=== PATIENT | male | born 1985 | race African-American/Black ===

== ENCOUNTER 2018-06-20 05:47 | Emergency (ER) | payer OTHER ==
[2018-06-20] MEDS ORDERED: KETOROLAC TROMETHAMINE INJ/PF 30 MG/1 ML SDV IV ONE (07:26)
[2018-06-20] MEDS ORDERED: RINGERS SOLUTION,LACTATED 1,000 ML IV ONE (07:26)
[2018-06-20] MEDS ORDERED: ONDANSETRON HCL INJ/PF 4 MG/2 ML SDV IV ONE (07:26)
[2018-06-20 08:15] LABS: ABSOLUTE EOSINOPHILS # (AUTO) 0.1 10^3/uL (0.0-0.6); ABSOLUTE LYMPHOCYTES (AUTO) 2.1 10^3/uL (0.5-4.7); ABSOLUTE MONOCYTES (AUTO) 0.5 10^3/uL (0.1-1.4); ABSOLUTE NEUT (AUTO) 2.5 10^3/uL (1.7-8.2); BASOPHILS % (AUTO) 0.8 % (0-2); HEMATOCRIT 47.8 % (37.9-51.0); HEMOGLOBIN 16.7 g/dL (13.5-17.0); LYMPHOCYTES % (AUTO) 39.8 % (13-45); MEAN CORPUSCULAR HEMOGLOBIN 29.7 pg (27.0-33.4); MEAN CORPUSCULAR HGB CONC 34.9 g/dL (32.0-36.0); MEAN CORPUSCULAR VOLUME 85 fl (80-97); PLATELET COUNT 269 10^3/uL (150-450); RED BLOOD COUNT 5.62 10^6/uL (4.35-5.55); RED CELL DISTRIBUTION WIDTH 13.8 % (11.5-14.0); SEGMENTED NEUTROPHILS % (AUTO) 47.4 % (42-78); TOTAL CELLS COUNTED % (AUTO) 100 %; WHITE BLOOD COUNT 5.3 10^3/uL (4.0-10.5)
[2018-06-20 08:16] LABS: APPEARANCE,URINE CLEAR; BILIRUBIN,URINE NEGATIVE (NEGATIVE); COLOR,URINE YELLOW; GLUCOSE, URINE NEGATIVE (NEGATIVE); KETONES,URINE NEGATIVE (NEGATIVE); LEUKOCYTE ESTERASE,URINE NEGATIVE (NEGATIVE); NITRITE,URINE NEGATIVE (NEGATIVE); PROTEIN,URINE NEGATIVE (NEGATIVE); URINE SPECIFIC GRAVITY 1.028
[2018-06-20 08:33] LABS: ALANINE AMINOTRANSFERASE 52 U/L (21-72); ALBUMIN 4.8 g/dL (3.5-5.0); ALKALINE PHOSPHATASE 61 U/L (38-126); ANION GAP 8 (5-19); ASPARTATE AMINO TRANSFERASE 33 U/L (17-59); BILIRUBIN,DIRECT 0.2 mg/dL (0.0-0.4); BILIRUBIN,TOTAL 0.4 mg/dL (0.2-1.3); BLOOD UREA NITROGEN 14 mg/dL (7-20); CALCIUM 9.7 mg/dL (8.4-10.2); CARBON DIOXIDE 31 mmol/L (22-30); CHLORIDE 104 mmol/L (98-107); GLUCOSE 94 mg/dL (75-110); LIPASE 227.5 U/L (23-300); POTASSIUM 4.4 mmol/L (3.6-5.0); SODIUM 143.2 mmol/L (137-145)
--- NOTE | 2018-06-20 08:51 | ER Document Report ---
ED General - General Chief Complaint: Vomiting Stated Complaint: VOMITING Time Seen by Provider: 06/20/18 07:22 TRAVEL OUTSIDE OF THE [place] IN LAST 30 DAYS: No - HPI Patient complains to provider of: Nausea vomiting diarrhea Exacerbated by: Denies Relieved by: Denies Notes: Patient states having nausea vomiting diarrhea unable to tolerate anything p.o. for the last 12 hours. Patient denies any fevers chills denies any recent a ntibiotics denies any sick contacts. Patient otherwise looks nontoxic upon my evaluation - Related Data Allergies/Adverse Reactions: No Known Allergies Allergy (Unverified 06/20/18 09:08) Past Medical History - Social History Smoking Status: Unknown if Ever Smoked Family History: Reviewed & Not Pertinent Review of Systems - Review of Systems Constitutional: No symptoms reported EENT: No symptoms reported Cardiovascular: No symptoms reported Respiratory: No symptoms reported Gastrointestinal: Diarrhea, Nausea, Vomiting Genitourinary: No symptoms reported Male Genitourinary: No symptoms reported Musculoskeletal: No symptoms reported Skin: No symptoms reported Hematologic/Lymphatic: No symptoms reported Neurological/Psychological: No symptoms reported -: Yes All other systems reviewed and negative Physical Exam - Vital signs Vitals: Temp Pulse Resp BP Pulse Ox 97.7 F 68 16 113/71 98 06/20/18 06:04 06/20/18 06:04 06/20/18 06:04 06/20/18 06:04 06/20/18 06:04 Interpretation: Normal - General General appearance: Appears well, Alert - HEENT Head: Normocephalic, Atraumatic Eyes: Normal Pupils: PERRL - Respiratory Respiratory status: No respiratory distress Chest status: Nontender Breath sounds: Normal Chest palpation: Normal - Cardiovascular Rhythm: Regular Heart sounds: Normal auscultation Murmur: No - Abdominal Inspection: Normal Distension: No distension Bowel sounds: Normal Tenderness: Nontender Organomegaly: No organomegaly - Back Back: Normal, Nontender - Extremities General upper extremity: Normal inspection, Nontender, Normal color, Normal ROM, Normal temperature General lower extremity: Normal inspection, Nontender, Normal color, Normal ROM, Normal temperature, Normal weight bearing. No: Pratima's sign - Neurological Neuro grossly intact: Yes Cognition: Normal Orientation: AAOx4 [place] Coma Scale Eye Opening: Spontaneous Sade Coma Scale Verbal: Oriented Sade Coma Scale Motor: Obeys Commands Sade Coma Scale Total: 15 Speech: Normal Motor strength normal: LUE, RUE, LLE, RLE Sensory: Normal - Psychological Associated symptoms: Normal affect, Normal mood - Skin Skin Temperature: Warm Skin Moisture: Dry Skin Color: Normal Course - Re-evaluation Re-evalutation: 06/20/18 14:55 The patient presents with nausea vomiting diarrhea without signs of peritonitis or other life-threatening or serious etiology. The patient appears stable for discharge and has been instructed to return immediately if the symptoms worsen in any way, or in 8-12hr if not improved for re-evaluation. The patient has been instructed to return if the symptoms worsen or change in any way. - Vital Signs Vital signs: Temp Pulse Resp BP Pulse Ox 98.7 F 73 16 137/65 H 100 06/20/18 09:29 06/20/18 09:29 06/20/18 09:29 06/20/18 09:29 06/20/18 09:29 - Laboratory Result Diagrams: 06/20/18 07:54 06/20/18 07:54 Laboratory results interpreted by me: 06/20/18 06/20/18 06/20/18 07:54 07:54 07:54 RBC 5.62 H Carbon Dioxide 31 H Urine Urobilinogen 2.0 H Discharge - Discharge Clinical Impression: Nausea vomiting and diarrhea Condition: Good Disposition: HOME, SELF-CARE Instructions: Clear Liquid Diet ([facility]), Gastroenteritis (adult) ([facility]) Additional Instructions: Your laboratory studies today do not reveal any critical pathology. The more likely have a viral gastroenteritis or viral illness causing nausea vomiting diarrhea. Symptoms may continue for the next 4-5 days. Would recommend a clear liquid diet for the next 12-24 hours once this is tolerated he may advance your diet to starchy foods avoid foods high in fat grease take medications as prescribed take Tylenol and Motrin for abdominal cramping Prescriptions: Ondansetron [Zofran Odt 4 mg Tablet] 1 - 2 tab PO Q4H PRN #30 tab.rapdis PRN Reason: For Nausea/Vomiting Promethazine HCl [Phenergan 25 mg Tablet] 25 mg PO Q6 #30 tablet Forms: Return to Work
[2018-06-20] MEDS ORDERED: ONDANSETRON 4 MG TAB.RAPDIS PO ONE (08:59)
[2018-06-20 09:31] VITALS: BP 137/65
== END 2018-06-20 09:31 | disposition home or self-care (01) ==
LOC: ER 05:47
DX: R11.2 Nausea with vomiting, unspecified (principal); R19.7 Diarrhea, unspecified
CPT/HCPCS: 99284; 96361; 96374; 96375; 36415; 83690; 85025; 80053; 81001; S0119; J1885; J2405; J7120